=== PATIENT | male | born 1970 | race Caucasian/White ===

== ENCOUNTER 2025-08-14 10:37 | Inpatient (IN) ==
--- NOTE | 2025-08-14 10:52 | EKG ---
Test Reason : dyspnea Blood Pressure : */* mmHG Vent. Rate : 148 BPM Atrial Rate : * BPM P-R Int : * ms QRS Dur : 86 ms QT Int : 318 ms P-R-T Axes : * 21 33 degrees QTc Int : 499 ms Atrial fibrillation with rapid ventricular response Septal infarct , age undetermined Abnormal ECG No previous ECGs available Confirmed by Clinton Hanna MD ([id number]) on 08/14/2025 10:52:10 AM Referred By: Confirmed By: Clinton Hanna MD
[2025-08-14] MEDS: CARDIZEM INJ 50 MG VIAL IVP ONE (10:56)
[2025-08-14 11:01] LABS: MEAN PLATELET VOLUME 8.8 fL (7.4-11.0); RED CELL DISTRIBUTION WIDTH 15.5 % (11.6-16.5)
[2025-08-14 11:07] LABS: INR 1.37 (0.8-1.3)
[2025-08-14 11:18] LABS: CREATININE 1.32 mg/dL (0.70-1.30); eGFR NON BLACK RACES > 60 (>60)
[2025-08-14] MEDS: LOPRESSOR INJ 5 MG AMP IVP ONE (11:19)
--- NOTE | 2025-08-14 11:25 | DR.SOBA ---
HPI Time Seen Time Seen by Provider: 08/14/25 11:24 Primary Care Physician Primary Care Physician: Vincent Complaints Chief Complaint Doctors Comments: Patient states this morning he started having some shortness of breath. He denies any fever. No wheeze. He has had some bilateral lower extremity edema. No pain. Denies chest pain. Feels like his heart skips a beat. Chief Complaint:: Patient states for the past two weeks he has been feeling short of breath. He states that he has to sleep in a chair sitting upright. He also reports that his legs has been swelling during this time, and he has been coughing up clear sputum at night. He denies any chest pain at this time, but states that he has been having it off and on the past two weeks. COVID-19 Coronavirus risk:travel/contact w/high risk person: No Has patient experienced Coronavirus symptoms: No Coronavirus symptoms experienced: Shortness of Breath Source History Provided: Patient Mode of Arrival Mode of Arrival: Ambulatory Timing Onset of Chief Complaint: 07/31/25 PMH PMH Past Medical History: Yes Past Medical History: Hypertension and Hypothyroidism Past Surgical History: Yes Surgical History: Abdominal Surgery and Cholecystectomy Family History History of Family Medical Conditions: Yes Family Medical History: Diabetes Mellitus, Cancer, [place], Coronary Artery Disease and Hypertension Social History Does patient currently use any type of tobacco product: Yes Have you used tobacco products in the last 12 months: Yes Type of Tobacco Use: Cigarettes Does any household member use tobacco: Yes Alcohol Use: None Do you use any recreational Drugs:: No Lives With: Family Lives Where: Home Travel Risk Coronavirus risk:travel/contact w/high risk person: No Has patient experienced Coronavirus symptoms: No Coronavirus symptoms experienced: Shortness of Breath Infectious screening In the last 2 months have you had wt loss of >10#?: NO Have you had fever, night sweats or hemotysis?: No Have you traveled outside the country in the last 6 months?: No Isolation: Standard ROS Review of Systems Constitutional: No Symptoms Reported; negative Fever Eyes: No Symptoms Reported ENTM: No Symptoms Reported Respiratoy: See HPI Cardiovascular: See HPI, Edema and Palpitations; negative Chest Pain or Syncope Gastrointestinal/Abdominal: No Symptoms Reported Genitourinary: No Symptoms Reported Neurological: No Symptoms Reported Musculoskeletal: No Symptoms Reported Integumentary: No Symptoms Reported Hematologic/Lymphatic: No Symptoms Reported Endocrine: No Symptoms Reported Psychiatric: No Symptoms Reported All Other Systems: Reviewed and Negative PE Vital Signs Vitals: Vital Signs Temperature 97.7 F Pulse Rate 138 Pulse Rate 136 Pulse Rate 142 Pulse Rate 136 Pulse Rate 138 Pulse Rate 137 Pulse Rate 140 Pulse Rate 141 Pulse Rate 136 Pulse Rate 141 Pulse Rate 140 Pulse Rate 139 Pulse Rate 134 Pulse Rate 137 Pulse Rate 135 Pulse Rate 137 Pulse Rate 134 Pulse Rate 137 Pulse Rate 132 Pulse Rate 132 Pulse Rate 139 Pulse Rate 147 Pulse Rate 153 Pulse Rate 150 Pulse Rate 149 Pulse Rate 156 Pulse Rate 150 Pulse Rate 151 Pulse Rate 93 Respiratory Rate 21 Respiratory Rate 20 Respiratory Rate 17 Respiratory Rate 20 Respiratory Rate 23 Respiratory Rate 25 Respiratory Rate 32 Respiratory Rate 21 Respiratory Rate 20 Respiratory Rate 28 Respiratory Rate 18 Respiratory Rate 20 Respiratory Rate 24 Respiratory Rate 31 Respiratory Rate 23 Respiratory Rate 24 Respiratory Rate 31 Respiratory Rate 20 Respiratory Rate 20 Respiratory Rate 23 Respiratory Rate 19 Respiratory Rate 26 Respiratory Rate 25 Respiratory Rate 20 Respiratory Rate 23 Blood Pressure 135/109 Blood Pressure 132/102 Blood Pressure 152/126 Blood Pressure 132/107 Blood Pressure 154/72 Blood Pressure 130/102 Blood Pressure 124/89 Blood Pressure 143/78 Blood Pressure 119/69 Blood Pressure 126/72 Blood Pressure 110/80 Blood Pressure 169/104 Blood Pressure 169/104 Blood Pressure 142/104 Blood Pressure 167/107 Blood Pressure 142/104 O2 Sat by Pulse Oximetry 95 O2 Sat by Pulse Oximetry 96 O2 Sat by Pulse Oximetry 94 O2 Sat by Pulse Oximetry 95 O2 Sat by Pulse Oximetry 96 O2 Sat by Pulse Oximetry 96 O2 Sat by Pulse Oximetry 93 O2 Sat by Pulse Oximetry 94 O2 Sat by Pulse Oximetry 95 O2 Sat by Pulse Oximetry 95 O2 Sat by Pulse Oximetry 95 O2 Sat by Pulse Oximetry 97 O2 Sat by Pulse Oximetry 96 O2 Sat by Pulse Oximetry 96 O2 Sat by Pulse Oximetry 94 O2 Sat by Pulse Oximetry 94 O2 Sat by Pulse Oximetry 94 O2 Sat by Pulse Oximetry 96 O2 Sat by Pulse Oximetry 91 O2 Sat by Pulse Oximetry 92 O2 Sat by Pulse Oximetry 94 O2 Sat by Pulse Oximetry 95 O2 Sat by Pulse Oximetry 94 O2 Sat by Pulse Oximetry 97 O2 Sat by Pulse Oximetry 94 O2 Sat by Pulse Oximetry 94 General Limitations: No Limitations General Appearance: Alert and In No Apparent Distress Head Head Exam: Normal Inspection Eyes Eye exam: Normal Appearance ENT ENT Exam: Normal Exam Neck Neck Exam: Normal Inspection Chest Chest Inspection: Normal Inspection Respiratory Respiratory Exam: Other (Diminished at bases otherwise clear to auscultate); negative Respiratory Distress Cardiovascular Cardiovascular Exam: Irregular Rhythm Abdominal Exam Abdominal Exam: Normal Inspection, Normal Bowel Sounds and Soft Extremities Extremities Exam: Normal Inspection and Normal Capillary Refill; negative Edema Back Back Exam: Normal Inspection Neurologic Neurological Exam: Alert and Oriented X3 Psychiatric Psychiatric Exam: Normal Affect and Normal Mood Skin Skin Exam: Warm, Dry, Intact and Normal Color COURSE Treatment Treatment: Discussed results of workup with patient. Attempted multiple medications for atrial fibrillation without success. Patient currently on Cardizem drip. Patient stable at this time. Suspect bilateral lower lobe pneumonia versus congestive heart failure. Blood pressure has been a little low so we have avoided Lasix at this time. Patient agreeable with admission. Critical Care Notes Total Time (mins): 72 Critical Diagnosis: A-fib with RVR, CHF, atypical pneumonia bilateral Critical Interventions: Attempted Cardizem IV bolus, IV drip, Lopressor IV, of digoxin IV x 2, IV fluids, magnesium. Antibiotics started IV. Time spent educating patient, interpreted workup results and managing admission. ROR Labs Reviewed Laboratory Results Reviewed?: Yes 08/14/25 10:48 08/14/25 10:48 Laboratory: WBC 5.4 X10^3/uL (3.6-10.0) 08/14/25 10:48 RBC 4.75 X10^6/uL (4.7-6.0) 08/14/25 10:48 Hgb 14.5 g/dL (13.5-18.0) 08/14/25 10:48 Hct 43.1 % (42.0-54.0) 08/14/25 10:48 MCV 90.6 fL (80.0-100.0) 08/14/25 10:48 MCH 30.6 pg (27.0-34.0) 08/14/25 10:48 MCHC 33.7 g/dL (33.0-35.0) 08/14/25 10:48 RDW 15.5 % (11.6-16.5) 08/14/25 10:48 Plt Count 190 X10^3/uL (150.0-450.0) 08/14/25 10:48 MPV 8.8 fL (7.4-11.0) 08/14/25 10:48 Neut % (Auto) 64.3 % (42.0-75.0) 08/14/25 10:48 Lymph % (Auto) 23.9 % (21.0-51.0) 08/14/25 10:48 [place] % (Auto) 7.8 % (0.0-13.0) 08/14/25 10:48 Eos % (Auto) 3.4 % (0.9-2.9) H 08/14/25 10:48 Baso % (Auto) 0.6 % (0.2-1.0) 08/14/25 10:48 Neut # (Auto) 3.5 x10^3/uL (2.2-4.8) 08/14/25 10:48 Lymph # (Auto) 1.3 X10^3/uL (1.3-2.9) 08/14/25 10:48 [place] # (Auto) 0.4 x10^3/uL (0.3-0.8) 08/14/25 10:48 Eos # (Auto) 0.2 x10^3/uL (0.0-0.2) 08/14/25 10:48 Baso # (Auto) 0.0 X10^3/uL (0.0-0.1) 08/14/25 10:48 Absolute Nucleated RBC 0.2 /100WBC 08/14/25 10:48 PT 17.0 SECONDS (11.8-14.3) 08/14/25 10:48 INR Target Range - 08/14/25 10:48 INR 1.37 (0.8-1.3) H 08/14/25 10:48 APTT 28.1 SECONDS (22.9-36.5) 08/14/25 10:48 PTT Comment - 08/14/25 10:48 D-Dimer 1.24 ug/ml (0.0-0.57) H 08/14/25 10:48 Sodium 142 mmol/L (136-145) 08/14/25 10:48 Sodium Cancelled 08/14/25 10:48 Corrected Sodium Cancelled 08/14/25 10:48 Corrected Sodium TNP 08/14/25 10:48 Potassium 4.6 mmol/L (3.5-5.1) 08/14/25 10:48 Potassium Cancelled 08/14/25 10:48 Chloride 106 mmol/L (98-107) 08/14/25 10:48 Chloride Cancelled 08/14/25 10:48 Carbon Dioxide 32.9 mmol/L (21-32) H 08/14/25 10:48 Carbon Dioxide Cancelled 08/14/25 10:48 BUN 21 mg/dL (7-18) H 08/14/25 10:48 BUN Cancelled 08/14/25 10:48 Creatinine 1.32 mg/dL (0.70-1.30) H 08/14/25 10:48 Creatinine Cancelled 08/14/25 10:48 Est GFR (MDRD) Af Amer > 60 (>60) 08/14/25 10:48 Est GFR (MDRD) Af Amer Cancelled 08/14/25 10:48 Est GFR (MDRD) Non-Af > 60 (>60) 08/14/25 10:48 Est GFR (MDRD) Non-Af Cancelled 08/14/25 10:48 Glucose 95 mg/dL (65-99) 08/14/25 10:48 Glucose Cancelled 08/14/25 10:48 Lactic Acid 0.6 mmol/L (0.4-2.0) 08/14/25 12:38 Calcium 9.1 mg/dL (8.5-10.1) 08/14/25 10:48 Calcium Cancelled 08/14/25 10:48 Corrected Calcium Cancelled 08/14/25 10:48 Magnesium 1.9 mg/dL (2.0-2.9) L 08/14/25 10:48 Total Bilirubin Cancelled 08/14/25 10:48 AST Cancelled 08/14/25 10:48 ALT Cancelled 08/14/25 10:48 Alkaline Phosphatase Cancelled 08/14/25 10:48 Creatine Kinase Cancelled 08/14/25 10:48 Troponin I High Sens 14.7 ng/L (4.0-60.0) 08/14/25 12:38 B-Natriuretic Peptide 131 pg/mL (0-79) H 08/14/25 10:48 Total Protein Cancelled 08/14/25 10:48 Albumin Cancelled 08/14/25 10:48 Globulin Cancelled 08/14/25 10:48 Albumin/Globulin Ratio Cancelled 08/14/25 10:48 Other Results Comments: Name: ANGELES COLVIN : 1970 Sex: M Location: ER Order Number(s): [id number] Procedure(s):CTA, CHEST Ordering Physician: Joshua Diamond Primary Care: FOZIA VELAZCO Service Date: 08/14/25 Service Time: 1118 EXAMINATION: CTA, CHEST HISTORY: DYSPNEA; . COMPARISON: None. TECHNIQUE: Routine axial imaging of the chest was performed. CT angiography of the pulmonary arteries was performed with maximum intensity projection images and volume rendered images on a workstation.. The above CT scan was done with automated exposure control and the mA and kV was adjusted to obtain quality images according to patient size. FINDINGS: Lungs: Respiratory motion. Smooth septal thickening with ground-glass opacities may represent interstitial edema or atypical pneumonia. Dependent atelectasis. No acute infiltrates, suspicious pulmonary nodules Central Airways: No obstructing endobronchial lesions Pleura: No pleural effusion or pneumothorax Thoracic Aorta: Ectasia. No dissection. Main Pulmonary Trunk: Normal diameter. No CT angiography evidence for acute pulmonary embolus. Evaluation of smaller branches limited by respiratory motion Lymph Nodes: No pathologically enlarged lymph nodes. Reactive precarinal, AP window and prevascular lymph nodes Heart/Pericardium: Normal heart size. No significant pericardial effusion. Liver: No acute findings. GB/Biliary: Cholecystectomy. No dilated duct Spleen: Normal size and density Pancreas: No acute findings as visualized Adrenal Glands: No mass Kidneys no hydronephrosis. Abdominal Aorta: Tapers normally Retroperitoneum: No pathologically enlarged lymph nodes Bowel/Peritoneal Cavity: No acute findings as visualized Osseous Structures: Degenerative changes in the thoracolumbar spine. No acute findings or bony lesions. Other: None IMPRESSION: Smooth septal thickening with minimal ground-glass opacities in the lung bases may represent interstitial edema or atypical pneumonia. Follow-up recommended No CT angiography evidence for acute pulmonary embolus or aortic dissection. The above CT scan was done with automated exposure control and the mA and kV was adjusted to obtain quality images according to patient size THIS IS AN ELECTRONICALLY VERIFIED FINAL REPORT 08/14/2025 12:24 PM - Electronically signed by Aniekt Lu MD XRAY X-ray Results: Name: ANGELES COLVIN : 1970 Sex: M Location: ER Order Number(s): [id number] Procedure(s):CHEST, 1 VIEW X-RAY Ordering Physician: Joshua Diamond Primary Care: FOZIA VELAZCO Service Date: 08/14/25 Service Time: 1051 EXAM: CHEST, 1 VIEW HISTORY: dyspnea; COMPARISON: No relevant prior studies were available for comparison at the time of interpretation. TECHNIQUE: CHEST, 1 VIEW FINDINGS: Chest: Lines and tubes: Cardiac leads overlie the chest. Mediastinum: Cardiomegaly. Pulmonary vessels: There is pulmonary vascular congestion. Lung garcia: Patchy opacities are seen Pleura: No effusion. No pneumothorax. Bones and soft tissues: No acute osseous or soft tissue abnormality. IMPRESSION: 1. Findings suggest heart failure THIS IS AN ELECTRONICALLY VERIFIED FINAL REPORT 08/14/2025 12:32 PM - Electronically signed by Thomas Campbell MD EKG Rate: 148 [place]: Normal Rhythm: Afib ST: Normal Opioid Opioid Risk Tool Age (Yuniel box if 16-45): No History of Preadolescent Sexual Abuse: No Total: 0 Total Score Risk Category: Low Risk Copyright: [facility] predicting aberrant behaviors Discharge Plan Diagnosis Discharge Problem: Atrial fibrillation with RVR, CHF exacerbation, Atypical pneumonia, Hypertension, Hypothyroid Discharge Plan Patient Disposition: 09 ADMITTED INPATIENT Condition: Stable Prescriptions: No Action amlodipine 10 mg Tablet 10 mg PO DAILY levothyroxine 50 mcg Tablet 50 mcg PO DAILY aspirin 81 mg Tablet 81 mg PO DAILY metoprolol succinate [Toprol XL] 25 mg Tablet Extended Release 24 Hr 25 mg PO DAILY Health Concerns: Post Hospitalization: new medications and changes needed to prevent readmission or further decline. Pt educated and given instructions on all concerns. Plan of Treatment: Continue with present treatment and follow up plan. Pt is to keep follow up appointment as instructed and take medications as ordered. Orders to Discharge Patient Discharge Orders: Transfer (Routine); Ordered 08/14/25 Ordered By: Joshua Diamond Follow ups/Referrals Follow ups/Referrals: FOZIA VELAZCO [Primary Care Provider, Unknown] - 3 days Instructions Stand Alone Forms: Find Help Web Site, Post Hospital Follow Up Care Print Language: TUVALUAN
[2025-08-14] MEDS: OMNIPAQUE 350 mg/mL 100 mL BTL IVP NR (11:46)
[2025-08-14] MEDS: NS 1,000 ML IV 1,000 ML IV ONE (11:57)
--- NOTE | 2025-08-14 12:28 | CT ---
EXAMINATION: CTA, CHEST HISTORY: DYSPNEA; . COMPARISON: None. TECHNIQUE: Routine axial imaging of the chest was performed. CT angiography of the pulmonary arteries was performed with maximum intensity projection images and volume rendered images on a workstation.. The above CT scan was done with automated exposure control and the mA and kV was adjusted to obtain quality im ages according to patient size. FINDINGS: Lungs: Respiratory motion. Smooth septal thickening with ground-glass opacities may represent interstitial edema or atypical pneumonia. Dependent atelectasis. No acute infiltrates, suspicious pulmonary nodules Central Airways: No obstructing endobronchial lesions Pleura: No pleural effusion or pneumothorax Thoracic Aorta: Ectasia. No dissection. Main Pulmonary Trunk: Normal diameter. No CT angiography evidence for acute pulmonary embolus. Evaluation of smaller branches limited by respiratory motion Lymph Nodes: No pathologically enlarged lymph nodes. Reactive precarinal, AP window and prevascular lymph nodes Heart/Pericardium: Normal heart size. No significant pericardial effusion. Liver: No acute findings. GB/Biliary: Cholecystectomy. No dilated duct Spleen: Normal size and density Pancreas: No acute findings as visualized Adrenal Glands: No mass Kidneys no hydronephrosis. Abdominal Aorta: Tapers normally Retroperitoneum: No pathologically enlarged lymph nodes Bowel/Peritoneal Cavity: No acute findings as visualized Osseous Structures: Degenerative changes in the thoracolumbar spine. No acute findings or bony lesions. Other: None IMPRESSION: Smooth septal thickening with minimal ground-glass opacities in the lung bases may represent interstitial edema or atypical pneumonia. Follow-up recommended No CT angiography evidence for acute pulmonary embolus or aortic dissection. The above CT scan was done with automated exposure control and the mA and kV was adjusted to obtain quality images according to patient size THIS IS AN ELECTRONICALLY VERIFIED FINAL REPORT 08/14/2025 12:24 PM - Electronically signed by Aniket Lu MD
[2025-08-14] MEDS: LANOXIN INJ IVP ONE ×2 (12:31→13:05)
--- NOTE | 2025-08-14 12:36 | RAD ---
EXAM: CHEST, 1 VIEW HISTORY: dyspnea; COMPARISON: No relevant prior studies were available for comparison at the time of interpretation. TECHNIQUE: CHEST, 1 VIEW FINDINGS: Chest: Lines and tubes: Cardiac leads overlie the chest. Mediastinum: Cardiomegaly. Pulmonary vessels: There is pulmonary vascular congestion. Lung garcia: Patchy opacities are seen Pleura: No effusion. No pneumothorax. Bones and soft tissues: No acute osseous or soft tissue abnormality. IMPRESSION: 1. Findings suggest heart failure THIS IS AN ELECTRONICALLY VERIFIED FINAL REPORT 08/14/2025 12:32 PM - Electronically signed by Thomas Campbell MD
[2025-08-14] MEDS: LEVAQUIN PREMIX IV 750 MG 750 MG/150 ML BAG IV SCH (12:41)
[2025-08-14] MEDS: MAGNESIUM SULFATE 1 GRAM/100 mL PREMIX 1 G/100 ML BAG IV ONE (12:50)
[2025-08-14] MEDS: CARDIZEM INJ 125 MG VIAL 125 MG in NS 100 ML IV 100 ML IV PRN (14:04)
[2025-08-14] MEDS: NICOTINE PATCH TD SCH (14:07)
[2025-08-14] MEDS ORDERED: MORPHINE SULFATE INJ 2 MG INJ IVP PRN (15:53)
[2025-08-14] MEDS ORDERED: NORCO 5/325 MG TAB PO PRN (15:53)
[2025-08-14] MEDS ORDERED: ZOFRAN INJ 4 MG VIAL IVP PRN (15:53)
[2025-08-14] MEDS ORDERED: CONSULT PHARMACY - POTASSIUM & MAGNESIUM XX SCH (16:00)
[2025-08-14] MEDS: LOPRESSOR INJ 5 MG AMP ONE (16:10)
[2025-08-14] MEDS: CARDIZEM INJ 50 MG VIAL ONE (16:10)
[2025-08-14] MEDS: LANOXIN INJ ONE (16:11)
[2025-08-14] MEDS: OMNIPAQUE 350 mg/mL 100 mL BTL 100 ML ONE (16:11)
--- NOTE | 2025-08-14 16:22 | EKG ---
Test Reason : a-fib Blood Pressure : */* mmHG Vent. Rate : 132 BPM Atrial Rate : * BPM P-R Int : * ms QRS Dur : 88 ms QT Int : 362 ms P-R-T Axes : * 40 -21 degrees QTc Int : 536 ms Atrial fibrillation with rapid ventricular response with premature ventricular or aberrantly conducted complexes Septal infarct (cited on or before 14-AUG-2025) Lateral injury pattern ACUTE NV / STEMI Abnormal ECG When compared with ECG of 14-AUG-2025 10:50, ST elevation now present in Anterolateral leads T wave inversion now evident in Inferior leads Confirmed by Clinton Hanna MD ([id number]) on 08/15/2025 5:48:43 AM Referred By: Confirmed By: Clinton Hanna MD
[2025-08-14] MEDS: XOPENEX 1.25 MG/3 ML NEBULE NEB SCH (16:25)
[2025-08-14 16:55] VITALS: BMI 47.5
[2025-08-14] MEDS ORDERED: LASIX IVP SCH (17:00)
[2025-08-14] MEDS ORDERED: TOPROL XL PO ONE (17:27)
[2025-08-14] MEDS ORDERED: ELIQUIS ONE (17:28)
[2025-08-14] MEDS: LASIX IVP SCH (17:35)
[2025-08-14] MEDS: ELIQUIS PO SCH (17:35)
[2025-08-14] MEDS: TOPROL XL PO SCH (17:37)
[2025-08-14] MEDS: MAG-OX TAB PO SCH (17:42)
[2025-08-14] MEDS: TYLENOL 325 MG TAB PO PRN (19:28)
[2025-08-14] MEDS ORDERED: PULMICORT NEB TX 0.5 MG NEB ONE (19:39)
[2025-08-14] MEDS: PULMICORT NEB TX 0.5 MG NEB SCH (20:12)
[2025-08-14] MEDS: COLACE CAP 100 MG PO SCH (20:13)
[2025-08-14] MEDS: ULTRAM PO PRN (22:29)
[2025-08-15 04:56] LABS: MEAN PLATELET VOLUME 9.1 fL (7.4-11.0); RED CELL DISTRIBUTION WIDTH 15.7 % (11.6-16.5)
[2025-08-15 05:03] LABS: COR CA(FOR HYPOALB) 9.3 mg/dL (8.5-10.1); CREATININE 1.36 mg/dL (0.70-1.30); eGFR NON BLACK RACES 58 (>60)
[2025-08-15] MEDS: TOPROL XL PO SCH (08:31)
--- NOTE | 2025-08-15 09:38 | DR.H&P ---
H&P History & Physical for Day of: H&P Date: 08/15/25 Chief Complaint Chief Complaint: SOB History of Present Illness History of Present Illness: Patient is a 55-year-old male with a past medical history of hypertension and hypothyroidism presented with worsening dyspnea and orthopnea. He states his symptoms have been going on for over 4 weeks. He did not follow-up with his PCP. He states he has been running out of his medications so has been taking them every other day. ER workup showed elevated BNP, troponin x 2 negative. He was noted to be in A-fib with RVR with heart rate in the 130s to 140s. He was given metoprolol IV, diltiazem IV and digoxin with not much improvement in heart rate. He was started on Cardizem drip. He also had elevated D-dimer, CTA showed no PE, did show possible atypical pneumonia. He was started on IV antibiotics and admitted for further evaluation. Cardiology was also consulted. He denies any history of CAD or atrial fibrillation. He reports having a heart cath in 2018 which was normal. Labs/imaging reviewed: - WBC 5 hemoglobin 14.7 potassium 3.9 creatinine 1.36 BNP 131 - TSH elevated free T4 low - CTA reviewed Plan: Admit to [facility] with telemetry. Follow cardiology recommendations. Wean Cardizem drip as per protocol. Continue current cardiac medications. Echocardiogram pending. Continue Eliquis. Continue IV Lasix. Monitor I's and O's, daily weight. Continue IV antibiotics and bronchodilators. Follow AIT results. Wean oxygen as tolerated. Replace electrolytes as per protocol. Monitor a.m. labs and imaging. Time spent for clinical assessment, reviewing labs/imaging, physical exam, decision making and documentation greater than 45 mins. Past Medical History Past Medical History: Hypertension and Hypothyroidism Past Surgical History Surgical History: Cholecystectomy Family History Family Medical History: Diabetes Mellitus, Cancer, [place], Coronary Artery Disease and Hypertension Social History Does patient currently use any type of tobacco product: Yes Have you used tobacco products in the last 12 months: Yes Type of Tobacco Use: Cigarettes Does any household member use tobacco: No Alcohol Use: None Drug Use: None Medications Home Medications: Home Medications Medication Instructions Recorded Confirmed Type amlodipine 10 mg tablet 10 mg PO DAILY 08/14/2502/02 History aspirin 81 mg tablet 81 mg PO DAILY 08/14/2502/02 History levothyroxine 50 mcg tablet 50 mcg PO DAILY 08/14/25 1 10/14/24 History metoprolol succinate 25 mg 25 mg PO DAILY 08/14/2502/02 History tablet,extended release 24 hr (Toprol XL) Allergies Allergies Allergy/AdvReac Type Severity Reaction Status Date / Time No Known Allergies Allergy Verified 08/14/25 10:43 Labs 08/15/25 04:14 08/15/25 04:14 Labs: Laboratory WBC 5.0 X10^3/uL (3.6-10.0) 08/15/25 04:14 RBC 4.87 X10^6/uL (4.7-6.0) 08/15/25 04:14 Hgb 14.7 g/dL (13.5-18.0) 08/15/25 04:14 Hct 43.8 % (42.0-54.0) 08/15/25 04:14 MCV 90.0 fL (80.0-100.0) 08/15/25 04:14 MCH 30.2 pg (27.0-34.0) 08/15/25 04:14 MCHC 33.6 g/dL (33.0-35.0) 08/15/25 04:14 RDW 15.7 % (11.6-16.5) 08/15/25 04:14 Plt Count 200 X10^3/uL (150.0-450.0) 08/15/25 04:14 MPV 9.1 fL (7.4-11.0) 08/15/25 04:14 Neut % (Auto) 64.8 % (42.0-75.0) 08/15/25 04:14 Lymph % (Auto) 24.3 % (21.0-51.0) 08/15/25 04:14 Hutchinson % (Auto) 7.5 % (0.0-13.0) 08/15/25 04:14 Eos % (Auto) 3.0 % (0.9-2.9) H 08/15/25 04:14 Baso % (Auto) 0.4 % (0.2-1.0) 08/15/25 04:14 Neut # (Auto) 3.2 x10^3/uL (2.2-4.8) 08/15/25 04:14 Lymph # (Auto) 1.2 X10^3/uL (1.3-2.9) L 08/15/25 04:14 Hutchinson # (Auto) 0.4 x10^3/uL (0.3-0.8) 08/15/25 04:14 Eos # (Auto) 0.1 x10^3/uL (0.0-0.2) 08/15/25 04:14 Baso # (Auto) 0.0 X10^3/uL (0.0-0.1) 08/15/25 04:14 Absolute Nucleated RBC 0.0 /100WBC 08/15/25 04:14 PT 17.0 SECONDS (11.8-14.3) 08/14/25 10:48 INR Target Range - 08/14/25 10:48 INR 1.37 (0.8-1.3) H 08/14/25 10:48 APTT 28.1 SECONDS (22.9-36.5) 08/14/25 10:48 PTT Comment - 08/14/25 10:48 D-Dimer 1.24 ug/ml (0.0-0.57) H 08/14/25 10:48 Sodium 140 mmol/L (136-145) 08/15/25 04:14 Corrected Sodium TNP 08/15/25 04:14 Potassium 3.9 mmol/L (3.5-5.1) 08/15/25 04:14 Chloride 102 mmol/L (98-107) 08/15/25 04:14 Carbon Dioxide 33.2 mmol/L (21-32) H 08/15/25 04:14 BUN 25 mg/dL (7-18) H 08/15/25 04:14 Creatinine 1.36 mg/dL (0.70-1.30) H 08/15/25 04:14 Est GFR (MDRD) Af Amer > 60 (>60) 08/15/25 04:14 Est GFR (MDRD) Non-Af 58 (>60) L 08/15/25 04:14 Glucose 109 mg/dL (65-99) H 08/15/25 04:14 Lactic Acid 0.6 mmol/L (0.4-2.0) 08/14/25 12:38 Calcium 8.7 mg/dL (8.5-10.1) 08/15/25 04:14 Corrected Calcium 9.3 mg/dL (8.5-10.1) 08/15/25 04:14 Magnesium 1.9 mg/dL (2.0-2.9) L 08/14/25 10:48 Total Bilirubin 0.80 mg/dL (0.2-1.0) 08/15/25 04:14 AST 31 Units/L (15-37) 08/15/25 04:14 ALT 41 Units/L (12-78) 08/15/25 04:14 Alkaline Phosphatase 77 Units/L (46-116) 08/15/25 04:14 Creatine Kinase Cancelled 08/14/25 10:48 Troponin I High Sens 14.7 ng/L (4.0-60.0) 08/14/25 12:38 B-Natriuretic Peptide 131 pg/mL (0-79) H 08/14/25 10:48 Total Protein 7.2 g/dL (6.4-8.2) 08/15/25 04:14 Albumin 3.3 g/dL (3.4-5.0) L 08/15/25 04:14 Globulin 3.9 g/dL (2.5-4.5) 08/15/25 04:14 Albumin/Globulin Ratio 0.8 Ratio (1.1-2.1) L 08/15/25 04:14 Free T4 0.67 ng/dL (0.76-1.46) L 08/14/25 12:38 TSH 3rd Generation 21.192 uIU/mL (0.358-3.74) H 08/14/25 12:38 Review of Systems Constitutional: Weakness Eyes: No Symptoms Reported ENT: No Symptoms Reported Respiratory: Shortness of Breath and SOB with Excertion Cardiovascular: Orthopnea and Edema Gastrointestinal: No Symptoms Reported Genitourinary: No Symptoms Reported Musculoskeletal: No Symptoms Reported Skin: No Symptoms Reported Neurological: No Symptoms Reported Physical Exam Vital Signs: Vital Signs Temperature 97.5 F Temperature 97.8 F Pulse Rate [Apical] 117 Pulse Rate [Apical] 104 Pulse Rate [Apical] 112 Pulse Rate [Apical] 129 Pulse Rate [Apical] 118 Pulse Rate [Apical] 97 Respiratory Rate 20 Respiratory Rate 20 Respiratory Rate 22 Respiratory Rate 20 Respiratory Rate 20 Respiratory Rate 18 Blood Pressure [Left Arm] 142/98 Blood Pressure [Left Arm] 126/98 Blood Pressure [Left Arm] 126/98 Blood Pressure [Left Arm] 141/70 Blood Pressure [Left Arm] 140/83 Blood Pressure [Left Arm] 119/86 O2 Sat by Pulse Oximetry 98 O2 Sat by Pulse Oximetry 91 O2 Sat by Pulse Oximetry 90 O2 Sat by Pulse Oximetry 90 O2 Sat by Pulse Oximetry 92 O2 Sat by Pulse Oximetry 94 Oriented: Normal Respiratory: RLL Rales and LLL Rales Cardiovascular: Tachycardia and Irregular Auscultation: Bowel Sounds: Normal Palpation: Normal Tenderness: Normal Skin: Normal Musculoskeletal: Normal Psychiatric: Normal Mood Description: Calm Affect: Normal Speech Pattern: Clear and Appropriate Assessment/Plan (1) Atrial fibrillation with RVR: Status: Acute (2) CHF exacerbation: Qualifiers: Heart failure type: unspecified Qualified Code(s): I50.9 - Heart failure, unspecified Status: Acute (3) Atypical pneumonia: Status: Acute (4) Hypertension: Qualifiers: Hypertension type: primary hypertension Qualified Code(s): I10 - Essential (primary) hypertension Status: Chronic (5) Hypothyroid: Qualifiers: Hypothyroidism type: acquired Qualified Code(s): E03.9 - Hypothyroidism, unspecified Status: Acute Review H&P Reviewed: Yes Patient was examined?: Yes
[2025-08-15] MEDS: NS 250 ML IV 250 ML IV ONE (09:57)
--- NOTE | 2025-08-15 10:32 | RAD ---
EXAM: CHEST, 1 VIEW HISTORY: SOB; HTN SX: ABD, CYRUS COMPARISON: 08/14/2025 TECHNIQUE: AP br.br.br.br vascular engorgement with unchanged mildly prominent interstitial opacities. No large pleural effusion or visible pneumothorax. IMPRESSION: Stable mild pulmonary edema. THIS IS AN ELECTRONICALLY VERIFIED FINAL REPORT 08/15/2025 10:13 AM - Electronically signed by Naeem Charlton MD
--- NOTE | 2025-08-15 14:28 | DR.CONSULT ---
CONSULT Consultation for Day of: Date: 08/15/25 Chief Complaint Chief Complaint: afib/chf Allergies Allergies Allergy/AdvReac Type Severity Reaction Status Date / Time No Known Allergies Allergy Verified 08/14/25 10:43 History of Present Illness History of Present Illness: 55 yo [id number] JYOTI-obesity at 360 lbs- htn- states for 4 weeks sob/edema/cant lie flat- found to be in afib and admitted- with diuresis-breathing easier/edema better- discussed AAT leading to CV tomorrow- he ok with that- lvh 1.4 cm- la 46 ml on echo Past Medical History Past Medical History: Hypertension and Hypothyroidism Past Surgical History Surgical History: Cholecystectomy Family History Family Medical History: Diabetes Mellitus, Cancer, [place], Coronary Artery Disease and Hypertension Social History Does patient currently use any type of tobacco product: Yes Have you used tobacco products in the last 12 months: Yes Type of Tobacco Use: Cigarettes Does any household member use tobacco: No Alcohol Use: None Drug Use: None Medications Home Medications: No Known Allergies Allergy (Verified 08/14/25 10:43) CONTINUE taking the following medications amlodipine 10 mg tablet 10 mg PO DAILY 08/14/25 [History] aspirin 81 mg tablet 81 mg PO DAILY 08/14/25 [History] levothyroxine 50 mcg tablet 50 mcg PO DAILY 08/14/25 [History] metoprolol succinate 25 mg tablet,extended release 24 hr (Toprol XL) 25 mg PO DAILY 08/14/25 [History] Physical Exam Vital Signs: Vital Signs Temperature 97.6 F Temperature 97.6 F Temperature 97.5 F Temperature 97.5 F Pulse Rate [Apical] 110 Pulse Rate [Apical] 99 Pulse Rate [Apical] 99 Pulse Rate [Apical] 87 Pulse Rate [Apical] 96 Pulse Rate [Apical] 105 Pulse Rate [Apical] 117 Pulse Rate 106 Respiratory Rate 21 Respiratory Rate 20 Respiratory Rate 20 Respiratory Rate 21 Respiratory Rate 20 Respiratory Rate 20 Respiratory Rate 20 Blood Pressure [Left Arm] 102/62 Blood Pressure [Left Arm] 135/60 Blood Pressure [Left Arm] 135/60 Blood Pressure [Left Arm] 119/94 Blood Pressure [Left Arm] 119/94 Blood Pressure [Left Arm] 127/82 Blood Pressure [Left Arm] 142/98 O2 Sat by Pulse Oximetry 93 O2 Sat by Pulse Oximetry 92 O2 Sat by Pulse Oximetry 92 O2 Sat by Pulse Oximetry 93 O2 Sat by Pulse Oximetry 92 O2 Sat by Pulse Oximetry 94 O2 Sat by Pulse Oximetry 93 O2 Sat by Pulse Oximetry 98 obeses irreg irreg clera lungs minimal edema labs: hct 43 ddimer positive bt cta no PE cxr: big heart/chf, tsh 21 with low T4 bnp 131 k3.9 cr 1.34 ekg: afib echo: ef 50-55% lvh at 1.4 la big pa 42 Plan (1) Atrial fibrillation with RVR: Status: Acute Plan: cont doac/ccb iv- change BB to sotalol load today- shon/cv tomorrow noon (2) CHF exacerbation: Status: Acute Qualifiers: Heart failure type: unspecified Qualified Code(s): I50.9 - Heart failure, unspecified (3) Hypertension: Status: Chronic Qualifiers: Hypertension type: primary hypertension Qualified Code(s): I10 - E ssential (primary) hypertension (4) Hypothyroid: Status: Acute Qualifiers: Hypothyroidism type: acquired Qualified Code(s): E03.9 - Hypothyroidism, unspecified Plan: need to correct (5) JYOTI (obstructive sleep apnea): Status: Acute (6) Pulmonary hypertension: Status: Acute
[2025-08-15] MEDS: BETAPACE AF PO SCH (15:21)
[2025-08-16 04:57] LABS: MEAN PLATELET VOLUME 8.7 fL (7.4-11.0); RED CELL DISTRIBUTION WIDTH 15.7 % (11.6-16.5)
[2025-08-16 05:05] LABS: COR CA(FOR HYPOALB) 9.4 mg/dL (8.5-10.1); CREATININE 1.45 mg/dL (0.70-1.30); eGFR NON BLACK RACES 54 (>60)
[2025-08-16] MEDS ORDERED: ROCEPHIN VIAL 1 GRAM 1 G in NS 100 ML IV 100 ML IV SCH (08:15)
[2025-08-16] MEDS: XYLOCAINE 1 % (PLAIN) IM SCH (08:45)
[2025-08-16] MEDS: ROCEPHIN VIAL 1 GRAM IM SCH (08:45)
[2025-08-16] MEDS ORDERED: ROCEPHIN VIAL 1 GRAM IM SCH (09:00)
[2025-08-16] MEDS: XYLOCAINE 1 % (PLAIN) ONE (09:12)
--- NOTE | 2025-08-16 09:18 | EKG ---
Test Reason : to be done 08/16/25 at 1015 Blood Pressure : */* mmHG Vent. Rate : 89 BPM Atrial Rate : * BPM P-R Int : * ms QRS Dur : 94 ms QT Int : 400 ms P-R-T Axes : * -6 71 degrees QTc Int : 486 ms Atrial fibrillation Prolonged QT -no sign change Abnormal ECG When compared with ECG of 14-AUG-2025 16:11, Criteria for Septal infarct are no longer present ST no longer elevated in Anterolateral leads T wave inversion no longer evident in Inferior leads Confirmed by Clinton Hanna MD ([id number]) on 08/16/2025 11:17:16 AM Referred By: Confirmed By: Clinton Hanna MD
--- NOTE | 2025-08-16 10:51 | PCM.PROG ---
Progress Note Progress Note for Day of Date of Exam: 08/16/25 Subjective Subjective: Patient is a 55-year-old male admitted for atrial fibrillation with RVR, CHF exacerbation, and atypical pneumonia. This morning he is sitting up in bed. No acute events overnight. He does have a cardioversion scheduled for today. Labs/imaging: WBC 7.3, hemoglobin 14.7, platelets 215, sodium 140, potassium 4.3, creatinine 1.45, glucose 109, ALT pending. Patient did have his Synthroid adjusted yesterday. Otherwise continue with sotalol and Lasix. Continue all other medications. Otherwise continue current treatment plan. Continue closely monitor follow-up labs/imaging. Past Medical Family Social History Allergies: Allergies No Known Allergies Allergy (Verified 08/14/25 10:43) Review of Systems ROS changes noted: see HPI Vital Signs and I&O's Vital Signs: Vital Signs Temperature 97.2 F Temperature 98.2 F Pulse Rate [Apical] 105 Pulse Rate [Apical] 96 Pulse Rate [Apical] 110 Pulse Rate [Apical] 96 Pulse Rate [Apical] 96 Pulse Rate [Apical] 102 Pulse Rate [Apical] 106 Pulse Rate [Apical] 100 Respiratory Rate 17 Respiratory Rate 21 Respiratory Rate 23 Respiratory Rate 18 Respiratory Rate 18 Respiratory Rate 20 Respiratory Rate 18 Respiratory Rate 20 Blood Pressure [Left Arm] 121/91 Blood Pressure [Left Arm] 124/84 Blood Pressure [Left Arm] 117/66 Blood Pressure [Left Arm] 118/77 Blood Pressure [Left Arm] 118/77 Blood Pressure [Left Arm] 124/67 Blood Pressure [Left Arm] 124/90 Blood Pressure [Left Arm] 119/83 O2 Sat by Pulse Oximetry 90 O2 Sat by Pulse Oximetry 91 O2 Sat by Pulse Oximetry 92 O2 Sat by Pulse Oximetry 91 O2 Sat by Pulse Oximetry 91 O2 Sat by Pulse Oximetry 92 O2 Sat by Pulse Oximetry 92 O2 Sat by Pulse Oximetry 94 Intake and Output: Intake & Output 08/13/25 08/14/25 08/15/25 08/16/25 23:59 23:59 23:59 23:59 Intake Total 1109 / 1109 2516 / 2516 125 / 125 Output Total 3100 / 3100 2730 / 2730 230 / 230 Balance -1990 / -1990 -214 / -214 -105 / -105 Physical Exam Oriented: Normal Respiratory: Normal Cardiovascular: Tachycardia and Irregular Auscultation: Bowel Sounds: Normal Tenderness: Normal Skin: Normal Musculoskeletal: Normal Psychiatric: Normal Mood Description: Calm Affect: Normal Speech Pattern: Clear and Appropriate Laboratory and Diagnostics 08/16/25 04:42 08/16/25 04:42 Labs: 08/14/25 12:45 Blood Blood Culture - Final 08/14/25 12:38 Blood Blood Culture - Preliminary Laboratory WBC 7.3 X10^3/uL (3.6-10.0) 08/16/25 04:42 RBC 4.83 X10^6/uL (4.7-6.0) 08/16/25 04:42 Hgb 14.7 g/dL (13.5-18.0) 08/16/25 04:42 Hct 43.3 % (42.0-54.0) 08/16/25 04:42 MCV 89.7 fL (80.0-100.0) 08/16/25 04:42 MCH 30.4 pg (27.0-34.0) 08/16/25 04:42 MCHC 33.8 g/dL (33.0-35.0) 08/16/25 04:42 RDW 15.7 % (11.6-16.5) 08/16/25 04:42 Plt Count 215 X10^3/uL (150.0-450.0) 08/16/25 04:42 MPV 8.7 fL (7.4-11.0) 08/16/25 04:42 Neut % (Auto) 71.2 % (42.0-75.0) 08/16/25 04:42 Lymph % (Auto) 17.4 % (21.0-51.0) L 08/16/25 04:42 Glynn % (Auto) 8.6 % (0.0-13.0) 08/16/25 04:42 Eos % (Auto) 2.3 % (0.9-2.9) 08/16/25 04:42 Baso % (Auto) 0.5 % (0.2-1.0) 08/16/25 04:42 Neut # (Auto) 5.2 x10^3/uL (2.2-4.8) H 08/16/25 04:42 Lymph # (Auto) 1.3 X10^3/uL (1.3-2.9) 08/16/25 04:42 Glynn # (Auto) 0.6 x10^3/uL (0.3-0.8) 08/16/25 04:42 Eos # (Auto) 0.2 x10^3/uL (0.0-0.2) 08/16/25 04:42 Baso # (Auto) 0.0 X10^3/uL (0.0-0.1) 08/16/25 04:42 Absolute Nucleated RBC 0.0 /100WBC 08/16/25 04:42 PT 17.0 SECONDS (11.8-14.3) 08/14/25 10:48 INR Target Range - 08/14/25 10:48 INR 1.37 (0.8-1.3) H 08/14/25 10:48 APTT 28.1 SECONDS (22.9-36.5) 08/14/25 10:48 PTT Comment - 08/14/25 10:48 D-Dimer 1.24 ug/ml (0.0-0.57) H 08/14/25 10:48 Sodium 140 mmol/L (136-145) 08/16/25 04:42 Corrected Sodium TNP 08/16/25 04:42 Potassium 4.3 mmol/L (3.5-5.1) 08/16/25 04:42 Chloride 103 mmol/L (98-107) 08/16/25 04:42 Carbon Dioxide 29.7 mmol/L (21-32) 08/16/25 04:42 BUN 27 mg/dL (7-18) H 08/16/25 04:42 Creatinine 1.45 mg/dL (0.70-1.30) H 08/16/25 04:42 Est GFR (MDRD) Af Amer > 60 (>60) 08/16/25 04:42 Est GFR (MDRD) Non-Af 54 (>60) L 08/16/25 04:42 Glucose 109 mg/dL (65-99) H 08/16/25 04:42 Lactic Acid 0.6 mmol/L (0.4-2.0) 08/14/25 12:38 Calcium 8.7 mg/dL (8.5-10.1) 08/16/25 04:42 Corrected Calcium 9.4 mg/dL (8.5-10.1) 08/16/25 04:42 Magnesium 2.1 mg/dL (2.0-2.9) 08/16/25 04:42 Total Bilirubin 0.70 mg/dL (0.2-1.0) 08/16/25 04:42 AST 29 Units/L (15-37) 08/16/25 04:42 ALT 38 Units/L (12-78) 08/16/25 04:42 Alkaline Phosphatase 73 Units/L (46-116) 08/16/25 04:42 Creatine Kinase Cancelled 08/14/25 10:48 Troponin I High Sens 14.7 ng/L (4.0-60.0) 08/14/25 12:38 B-Natriuretic Peptide 131 pg/mL (0-79) H 08/14/25 10:48 Total Protein 7.0 g/dL (6.4-8.2) 08/16/25 04:42 Albumin 3.1 g/dL (3.4-5.0) L 08/16/25 04:42 Globulin 3.9 g/dL (2.5-4.5) 08/16/25 04:42 Albumin/Globulin Ratio 0.8 Ratio (1.1-2.1) L 08/16/25 04:42 Free T4 0.67 ng/dL (0.76-1.46) L 08/14/25 12:38 TSH 3rd Generation 21.192 uIU/mL (0.358-3.74) H 08/14/25 12:38 Plan (1) Atrial fibrillation with RVR: Status: Acute (2) CHF exacerbation: Status: Acute Qualifiers: Heart failure type: unspecified Qualified Code(s): I50.9 - Heart failure, unspecified (3) Hypertension: Status: Chronic Qualifiers: Hypertension type: primary hypertension Qualified Code(s): I10 - Essential (primary) hypertension (4) Hypothyroid: Status: Acute Qualifiers: Hypothyroidism type: acquired Qualified Code(s): E03.9 - Hypothyroidism, unspecified (5) JYOTI (obstructive sleep apnea): Status: Acute (6) Pulmonary hypertension: Status: Acute
[2025-08-16] MEDS: NS 1,000 ML IV 250 ML IV PRN (13:00)
[2025-08-16] MEDS: NS 500 ML IV 0 ML IV ONE (13:17)
[2025-08-16] MEDS: NS 500 ML IV 500 ML IV ONE (13:20)
[2025-08-16] MEDS: DIPRIVAN VIAL 20 ML ONE (13:21)
[2025-08-16] MEDS: DIPRIVAN VIAL 150 ML IVP PRN (13:31)
--- NOTE | 2025-08-16 14:01 | CARDIOVERT ---
Cardioversion Note Date of Procedure: Date: 08/16/25 Note Cardioversion note: precardioversion diagnosis: afib postcv dx: NSR anesthesia per anesthesia notes procedure: consent obtained, he is in afib/chf- on doac for 2 days and 3 doses of sotalol- anethesia was given- when sedated- standard SAMANTHA was performed with no contraindications found- #00 J of sychronous electricity was applied to chest converting to nsr- tolerated procedure well but no doubt he has sleep apnea- moving all 4/talking post CV/ Impression: successful Cv to nsr plan: cont doac/sotalol- watch in hospital until tomorrow- resume home bp med- amlodipine. check QT interval in am prior to d/c
--- NOTE | 2025-08-16 14:03 | NOTE.SOAP ---
Soap Note Note for Day of Date of Exam: 08/16/25 Subjective Data Subjective Data: successful cv to nsr- qt interval after 3 doses of sotalol: no change Assessment Assessment: afib/cardioversion/htn/JYOTI/hypothyroid Plan Plan: due to sotalol- observe until am- resume amlodipine- stressed to take LT4- cont doac/sotalol at home- need sleep study- must lose weight
[2025-08-16 16:49] VITALS: BP 140/96; PULSE 73; RESP 25; TEMP 97.8; O2SAT 90
[2025-08-17] MEDS ORDERED: NORVASC TAB 10 MG PO SCH (09:00)
== END 2025-08-16 19:40 | disposition left against medical advice (07) | DRG 291 ==
LOC: ER 10:37 → MED/SURG 15:06
PROVIDERS: ADMIT Internal Medicine; ATTEND Internal Medicine
DX: E83.42 Hypomagnesemia; R60.0 Localized edema; Y92.9 Unspecified place or not applicable; I48.91 Unspecified atrial fibrillation; Z53.29 Procedure and treatment not carried out because of patient's decision for other reasons; R79.1 Abnormal coagulation profile; I27.20 Pulmonary hypertension, unspecified; E03.8 Other specified hypothyroidism; R94.31 Abnormal electrocardiogram [ECG] [EKG]; R06.02 Shortness of breath; R00.0 Tachycardia, unspecified; R94.4 Abnormal results of kidney function studies; R06.09 Other forms of dyspnea; Z72.0 Tobacco use; S50.812A Abrasion of left forearm, initial encounter; I50.89 Other heart failure; B96.3 Hemophilus influenzae [H. influenzae] as the cause of diseases classified elsewhere; J18.8 Other pneumonia, unspecified organism; I11.0 Hypertensive heart disease with heart failure; G47.33 Obstructive sleep apnea (adult) (pediatric); X58.XXXA Exposure to other specified factors, initial encounter